=== PATIENT | male | born 1955 | race Caucasian/White ===

== ENCOUNTER 2017-02-19 17:20 | Inpatient (IN) | payer OTHER ==
[~2017-02-19] VITALS: Ht 182.9 cm; Wt 63.9 kg
[~2017-02-19 17:20] MED LIST: ASPI81TA27 PO
[2017-02-19 18:50] LABS: Basophils # (auto) 0 uL; Basophils % (auto) 0.3 % (0.0-2.0); DEFINITIVE VIEW TRANSMISSION; Eosinophils # (auto) 0 uL; Eosinophils % (auto) 0.6 % (0.0-7.0); Hematocrit 31.3 % (41.0-53.0); Hemoglobin 10.8 g/dL (13.5-17.5); Lymphocytes # (auto) 1.3 uL; Lymphocytes % (auto) 26.3 % (10.0-50.0); Mean Corpuscular Hemoglobin 37.5 pg (28.0-32.0); Mean Corpuscular Hgb Conc. 34.6 g/dL (32.0-36.0); Mean Corpuscular Volume 108.5 fL (80.0-100.0); Mean Platelet Volume 10.1 fL (7.4-10.4); Monocytes # (auto) 0.5 uL; Monocytes % (auto) 9.2 % (0.0-12.0); Neutrophils # (auto) 3.2 uL; Neutrophils % (auto) 63.6 % (37.0-80.0); Platelet Count (auto) 137 10^3/uL (140-450); Red Cell Distribution Width 14.8 % (11.6-16.0); White Blood Cell 5.1 10^3/uL (4.4-10.8)
[2017-02-19 19:09] LABS: Albumin 2.2 g/dL (3.4-5.0); BUN/Creatinine Ratio 16.4; Bilirubin, Total 2.3 mg/dL (0.2-1.0); Calcium 6.1 mg/dL (8.5-10.1); Total Protein 5.4 g/dL (6.4-8.2)
[2017-02-19 19:33] LABS: Macrocytosis Moderate; Platelet Estimate Decreased
[2017-02-19 19:57] LABS: Potassium 2.3 mmol/L (3.5-5.1)
[2017-02-19] MEDS ORDERED: POTASSIUM CHL 20 Meq TABLET PO ONE ×2 (21:45)
[2017-02-19] MEDS ORDERED: TETANUS-DIPTH-ACEL PERTUSSIS 0.5ML SYRG IM ONE (21:45)
[2017-02-20] MEDS ORDERED: DEXTROSE (50%) 50ML SYRG IV PRN (01:15)
[2017-02-20] MEDS ORDERED: ACETAMINOPHEN 325 MG TAB PO PRN (01:15)
[2017-02-20] MEDS ORDERED: HYDROcodone-ACET 5/325MG TAB PO PRN (01:15)
[2017-02-20] MEDS ORDERED: NITROGLYCERIN 0.4 MG SL TAB SL PRN (01:15)
[2017-02-20] MEDS ORDERED: ONDANSETRON HCL 4 MG/2 ML VIAL IV PRN (01:15)
[2017-02-20] MEDS ORDERED: MORPHINE SULF INJ 2 MG/ML SYRINGE 1ML IV PRN (01:15)
[2017-02-20] MEDS ORDERED: TEMAZEPAM 15 MG CAP PO PRN (01:15)
[2017-02-20 02:08] LABS: Partial Thromboplastin Time 28.8 sec (22.64-33.71)
[2017-02-20 02:18] LABS: INR 1.37 (0.9-1.15)
[2017-02-20 04:53] VITALS: BP 118/69
[2017-02-20 04:56] VITALS: BP 118/69
[2017-02-20] MEDS: InsuLIN REG 1unit/0.01ml Soln (100units/ml) SC SCH ×4 (05:47→23:42)
[2017-02-20] MEDS: ACCU-CHEK COMFORT CURVE STRIP VI SCH ×5 (05:47→23:43)
[2017-02-20 09:00] VITALS: BP 111/68
[2017-02-20] MEDS: ENOXAPARIN SOD 40 MG/0.4 ML SYRINGE SC SCH (10:08)
[2017-02-20] MEDS: LISINOPRIL 10 MG TAB PO SCH (10:09)
[2017-02-20] MEDS: ISOSORBIDE MONONITRATE 60 MG TAB PO SCH (10:09)
[2017-02-20] MEDS: FAMOTIDINE 20 MG TAB PO SCH ×2 (10:10→21:46)
[2017-02-20] MEDS: ASPirin 81 mg TAB PO SCH (10:10)
[2017-02-20 12:56] LABS: BUN/Creatinine Ratio 28.6; Calcium 6.2 mg/dL (8.5-10.1)
[2017-02-20 13:00] VITALS: BP 116/73
[2017-02-20 13:19] LABS: Potassium 2.9 mmol/L (3.5-5.1)
[2017-02-20] MEDS ORDERED: POTASSIUM CHL 20 Meq TABLET PO ONE (13:30)
[2017-02-20 16:53] VITALS: BP 144/88
[2017-02-20 21:42] VITALS: BP 104/64
[2017-02-20] MEDS: POTASSIUM CHL 20 Meq TABLET PO SCH (21:46)
[2017-02-20] MEDS ORDERED: ATORVASTATIN 20 MG TAB PO SCH (22:00)
[2017-02-20] MEDS ORDERED: POTASSIUM CHL 20 Meq TABLET PO SCH (22:00)
[2017-02-20] MEDS ORDERED: THIAMINE INJ 100 MG, MULTIPLE VITAMIN 10 ML, FOLIC ACID 1 MG, MAGNESIUM SULF SDV 50% 8 ... IV SCH ×5 (22:00)
[2017-02-21 04:57] VITALS: BP 114/71
[2017-02-21] MEDS: InsuLIN REG 1unit/0.01ml Soln (100units/ml) SC SCH ×2 (06:00→12:00)
[2017-02-21] MEDS: ACCU-CHEK COMFORT CURVE STRIP VI SCH ×2 (06:08→12:05)
[2017-02-21 07:32] LABS: Basophils # (auto) 0 uL; Basophils % (auto) 0.4 % (0.0-2.0); DEFINITIVE VIEW TRANSMISSION; Eosinophils # (auto) 0.1 uL; Hemoglobin 11.3 g/dL (13.5-17.5); Lymphocytes # (auto) 1.5 uL; Lymphocytes % (auto) 26.1 % (10.0-50.0); Mean Corpuscular Hemoglobin 37.6 pg (28.0-32.0); Mean Corpuscular Hgb Conc. 34.3 g/dL (32.0-36.0); Mean Corpuscular Volume 109.5 fL (80.0-100.0); Mean Platelet Volume 9.9 fL (7.4-10.4); Monocytes # (auto) 0.4 uL; Monocytes % (auto) 7.1 % (0.0-12.0); Neutrophils # (auto) 3.8 uL; Neutrophils % (auto) 64.4 % (37.0-80.0); Platelet Count (auto) 164 10^3/uL (140-450); Red Cell Distribution Width 14.8 % (11.6-16.0); White Blood Cell 5.9 10^3/uL (4.4-10.8)
[2017-02-21 08:00] VITALS: BP 126/45
[2017-02-21 08:12] LABS: Albumin 2.2 g/dL (3.4-5.0); BUN/Creatinine Ratio 28.8; Bilirubin, Total 1.9 mg/dL (0.2-1.0); Calcium 6.4 mg/dL (8.5-10.1); Potassium 3.2 mmol/L (3.5-5.1); Total Protein 5.4 g/dL (6.4-8.2)
[2017-02-21 08:57] VITALS: BP 126/45
[2017-02-21] MEDS: POTASSIUM CHL 20 Meq TABLET PO SCH (10:35)
[2017-02-21] MEDS: ISOSORBIDE MONONITRATE 60 MG TAB PO SCH (10:35)
[2017-02-21] MEDS: FAMOTIDINE 20 MG TAB PO SCH (10:36)
[2017-02-21] MEDS: ASPirin 81 mg TAB PO SCH (10:36)
[2017-02-21] MEDS: LISINOPRIL 10 MG TAB PO SCH (10:36)
[2017-02-21] MEDS: ENOXAPARIN SOD 40 MG/0.4 ML SYRINGE SC SCH (10:36)
[2017-02-21 13:00] VITALS: BP 103/69
[2017-02-21 16:40] VITALS: BP 111/78
[2017-02-21 17:00] VITALS: BP 111/78
== END 2017-02-21 17:10 | disposition home or self-care (01) | DRG 308 ==
LOC: EDBD 17:20 → ER 17:23 → TELE 17:24 → TELE-WESTW 02-20 03:28
PROVIDERS: ADMIT Internal Medicine; ATTEND Family Medicine
DX: I49.9 Cardiac arrhythmia, unspecified (principal); E43 Unspecified severe protein-calorie malnutrition; G93.41 Metabolic encephalopathy; D64.9 Anemia, unspecified; E11.9 Type 2 diabetes mellitus without complications; I10 Essential (primary) hypertension; F10.188 Alcohol abuse with other alcohol-induced disorder; Z68.1 Body mass index [BMI] 19.9 or less, adult; E87.6 Hypokalemia; S00.83XA Contusion of other part of head, initial encounter; E78.5 Hyperlipidemia, unspecified; I48.91 Unspecified atrial fibrillation; M10.9 Gout, unspecified; R29.6 Repeated falls; R00.8 Other abnormalities of heart beat; G47.00 Insomnia, unspecified; W18.39XA Other fall on same level, initial encounter; I25.2 Old myocardial infarction; Z91.81 History of falling; Z79.82 Long term (current) use of aspirin; Z79.01 Long term (current) use of anticoagulants; Z79.899 Other long term (current) drug therapy; Z86.73 Personal history of transient ischemic attack (TIA), and cerebral infarction without residual deficits; Z87.891 Personal history of nicotine dependence; Z82.49 Family history of ischemic heart disease and other diseases of the circulatory system; Z71.3 Dietary counseling and surveillance; Y93.89 Activity, other specified; Y92.89 Other specified places as the place of occurrence of the external cause; Y99.8 Other external cause status
CPT/HCPCS: 36415; 70450; 71010; 80048; 80053; 82962; 84484; 85025; 85610; 85730; 90715; 93005; 93886; 94761; 95819; J1815